=== PATIENT | female | born 1980 | race Caucasian/White ===

== ENCOUNTER 2023-07-23 15:49 | Outpatient (REF) | payer OTHER, SELFPAY ==
[2023-08-06 16:13] LABS: Calcium Oxalate Monohydrate 100 % (.); Size 4x4 mm (.)
== END 2023-07-23 15:50 | disposition home or self-care (01) ==
LOC: LAB 15:49
PROVIDERS: PCP Family Medicine; Visit Provider Urology
DX: N20.0 Calculus of kidney (principal)
CPT/HCPCS: 82365